=== PATIENT | female | born 1985 ===

== ENCOUNTER 2019-12-03 10:53 | Emergency (ER) | payer OTHER ==
[~2019-12-03] VITALS: Ht 162.6 cm; Wt 95.3 kg
[2019-12-03] MEDS ORDERED: MUCINEX1200 MG PO (14:07)
== END 2019-12-03 15:12 | disposition home or self-care (01) ==
LOC: ER 10:53
DX: J06.9 Acute upper respiratory infection, unspecified (principal)

== ENCOUNTER 2020-04-26 13:30 | Inpatient (IN) | payer OTHER ==
[~2020-04-26] VITALS: Ht 167.6 cm; Wt 3.6 kg
[~2020-04-26 13:30] MED LIST: MUCINEX1200 MG PO
[2020-05-03] MEDS ORDERED: PRENATAL PLUS1 EAC1 PO (11:22)
== END 2020-05-06 13:21 | disposition home or self-care (01) | DRG 788 ==
LOC: O/R 05-03 10:49 → OB/GYN 05-03 13:15
PROVIDERS: ADMIT Obstetrics & Gynecology; ATTEND Obstetrics & Gynecology
PROC: 4A1HXCZ Monitoring of Products of Conception, Cardiac Rate, External Approach (ICD-10-PCS; 2020-05-03)
PROC: 10D00Z1 Extraction of Products of Conception, Low, Open Approach (ICD-10-PCS; principal; 2020-05-03 13:15)
DX: O65.8 Obstructed labor due to other maternal pelvic abnormalities (principal); Z3A.39 39 weeks gestation of pregnancy; Z37.0 Single live birth